=== PATIENT | female | born 1985 | race Caucasian/White ===

== ENCOUNTER 2018-02-21 08:57 | Day surgery (SDC) | payer BC ==
[~2018-02-21] VITALS: Ht 170.2 cm; Wt 93.4 kg
[~2018-02-21 08:57] MED LIST: COLA100C5 PO; PREN1TAB11 PO; PRENTAB55 PO; RANI1TAB6 PO; VITA500C24 PO
[2018-02-21] MEDS ORDERED: NS 1,000 ML IV ONE (09:15)
[2018-02-21] MEDS ORDERED: PROPOFOL 200 MG/20 ML VIAL As Ordered ONE (10:15)
--- NOTE | 2018-02-21 10:36 | ROOR ---
Patient Name: Ashleigh Ro Procedure Date: 02/21/2018 10:13 AM Date of : 1985 Age: 32 Room: OP02 Gender: Female Note Status: Finalized Procedure: Colonoscopy Indications: High risk colon cancer surveillance: Personal history of colonic polyps, Family history of colon cancer in a distant relative, Incidental - Irritable bowel syndrome with constipation Providers: Kip CORBIN MD Referring MD: Roverto KAMARA Requesting Provider: Medicines: Monitored Anesthesia Care Complications: No immediate complications. Procedure: Pre-Anesthesia Assessment: - The heart rate, respiratory rate, oxygen saturations, blood pressure, adequacy of pulmonary ventilation, and response to care were monitored throughout the procedure. The Colonoscope was introduced through the anus and advanced to the terminal ileum, with identification of the appendiceal orifice and IC valve. The colonoscopy was performed without difficulty. The patient tolerated the procedure well. The quality of the bowel preparation was good. Findings: The terminal ileum appeared normal. The colon (entire examined portion) appeared normal. Impression: - The examined portion of the ileum was normal. - The entire colon is normal. - No specimens collected. Recommendation: - Repeat colonoscopy in 5 years for screening purposes. Kip Corbin MD Kip CORBIN MD 02/21/2018 10:35:44 AM This report has been signed electronically. Number of Addenda: 0 Note Initiated On: 02/21/2018 10:13 AM Estimated Blood Loss: Estimated blood loss: none.
[2018-02-21 10:50] VITALS: BP 131/80
== END 2018-02-21 10:59 | disposition home or self-care (01) ==
LOC: M OPP 08:57
PROVIDERS: ATTEND Internal Medicine Gastroenterology
DX: K58.1 Irritable bowel syndrome with constipation (principal); Z86.010 Personal history of colon polyps; Z80.0 Family history of malignant neoplasm of digestive organs

== ENCOUNTER → 2020-07-06 | Outpatient (CLI) | payer BC ==
[~2020-07-06] MED LIST changes: +RANI-397 PO; -RANI1TAB6 PO
== END ==
LOC: M LABSMTC 10:06
PROVIDERS: ATTEND Pediatrics
DX: Z20.822 Contact with and (suspected) exposure to COVID-19 (principal)
CPT/HCPCS: C9803; U0003

== ENCOUNTER 2023-06-05 10:12 | Day surgery (SDC) | payer BC ==
[~2023-06-05] VITALS: Ht 172.7 cm; Wt 83.5 kg
[~2023-06-05 10:12] MED LIST changes: +APPL300T4 PO; +C 50TAB PO; +CALC1TAB30 PO; +HYDR-643 PO; +LABE100T6 PO; +MAGN250T7 PO; +MULT-90 PO; +PREN200C PO; +PROBCAP2 PO; +TOTAL BEETS; +[UNRECOGNIZED DRUG - OTHER]
[2023-06-05] MEDS: NS 1,000 ML IV ONE (10:38)
[2023-06-05] MEDS ORDERED: GLYCOPYRROLATE INJ 0.2 MG/ML 2 ML VIAL As Ordered ONE (11:06)
[2023-06-05] MEDS ORDERED: propofoL 200 MG/20 ML VIAL As Ordered ONE (11:06)
[2023-06-05 13:22] VITALS: BP 134/61; TEMP 97.6; O2SAT 100
== END 2023-06-05 13:15 | disposition home or self-care (01) ==
LOC: M OPP 10:12
PROVIDERS: ATTEND Internal Medicine Gastroenterology
DX: Z12.11 Encounter for screening for malignant neoplasm of colon (principal); Z86.010 Personal history of colon polyps; Z80.0 Family history of malignant neoplasm of digestive organs; R12 Heartburn; R13.10 Dysphagia, unspecified; Z88.2 Allergy status to sulfonamides

== ENCOUNTER → 2023-06-06 | Outpatient (CLI) | payer BC ==
[~2023-06-06] MED LIST changes: +E-Z-GAS II EFFERVESCENT PACKET (SODIUM BICARB./CITRIC ACID/SIMETHICONE) As Ordered ONE; +E-Z-HD 98% w/w 340GM SUSP BTL As Ordered ONE; +E-Z-PAQUE 96% w/w SUSP 176GM BTL As Ordered ONE
== END ==
LOC: M RAD 08:38
PROVIDERS: ATTEND Physician Assistant Medical
DX: R13.10 Dysphagia, unspecified (principal); R12 Heartburn; Z53.9 Procedure and treatment not carried out, unspecified reason